=== PATIENT | male | born 1980 | race Caucasian/White ===

== ENCOUNTER 2016-11-25 02:02 | Emergency (ER) | payer OTHER ==
[~2016-11-25] VITALS: Ht 177.8 cm; Wt 77.3 kg
[2016-11-25 03:16] VITALS: BP 121/56; PULSE 59; RESP 18; O2SAT 99
--- NOTE | 2016-11-25 03:34 | ED.REPORT ---
HPI-Chest Pain Under 40 Date of Service Nov 25, 2016 ED Provider: Osmany Faustin MD Pt is a 36 year old male with a hx of COPD and asthma presenting to the ED complaining of chest pain radiating down his left arm onset just prior to arrival. He reports that he was at work and he kneeled down and "fell over", losing consciousness. The chest pain and sharp pain up and down the arm began shortly after. He states that he has these syncopal episodes frequently but he is not sure why. He has not had an echo. Denies any injury, SOB, wheezing, fever , chills, nausea or vomiting. Nursing Notes Stated Complaint: CHEST PAIN Chief Complaint: Chest Pain Nursing Notes Reviewed: Yes Allergies: Coded Allergies: Acetaminophen (Verified Allergy, Intermediate, unk, 11/24/11) Oxycodone HCl (Verified Allergy, Intermediate, unk, 11/24/11) Uncoded Allergies: DARVOCET (Allergy, Intermediate, unk, 11/24/11) General Time Seen by MD: 03:30 Chief Complaint Chest pain Hx Obtained From: Patient Arrived By: Walk-in Sudden in Onset?: Yes Onset Occurred: Just prior to arrival Symptom Duration: Since onset Location: : Chest left Quality: Painful Severity: Current: Mild Severity: Maximum: Moderate Recent Healthcare: No recent doctor visit, No recent hospitalization Similar Sx Previous: Yes Past Medical History Past Medical History Reports: Asthma, COPD Past Surgical History open heart surgery at the age of 11 to patch a hole in the heart Social History Alcohol Use: Denies alcohol use Ambulatory Status Independent Review of Systems Constitutional: Denies: Chills, Fever Respiratory: Denies: Shortness of breath, Wheezing Cardiovascular: Reports: Chest pain GI: Denies: Nausea, Vomiting Musculoskeletal: Reports: Extremity pain Neurologic: Reports: Change LOC Complete sys rev & neg: except as marked. Physical Exam Initial Vital Signs Vital Signs (First) Date Time Temp Pulse Resp B/P Pulse Ox O2 Delivery O2 Flow Rate FiO2 11/25/16 03:16 37.1 59 18 121/56 99 Room Air Initial VS: Reviewed, Vital signs normal Head / Eyes: Atraumatic, Normocephalic, PERRL ENT: Mucous membranes moist, Conjunctiva normal, No scleral icterus Neck: Supple, Non-tender, Full range of motion Abdomen / GI: Soft, Non-tender, No guarding, No rebound, No distention Extremities: Vascular intact, Neuro intact, No swelling, No tenderness Skin: Warm, Dry, No cyanosis Neurologic: Alert, Oriented, Nonfocal Psychiatric: Mood/affect normal, Behavior normal, Normal thought content General/Constitutional: Awake, Alert, No acute distress, Well appearing Respiratory / Chest: Breath sounds NL, Breath sounds = bilat, No respiratory distress, No rales, No rhonchi, No wheezing, No chest tenderness Cardiovascular: Heart rate NL, Regular rhythm, Heart sounds NL, No murmurs, Peripheral circulation NL, Pulses = bilaterally, No gross BP differential Interpretation & Diagnostics Lab Results Interpretation Result Diagram: 11/25/16 0215 11/25/16 0215 Test 11/25/16 02:15 White Blood Count 11.6th/mm3 (3.8-10.1) Red Blood Count 4.54mil/mm3 (4.40-5.80) Hemoglobin 14.5g/dL (13.8-17.2) Hematocrit 40.1% (41.0-50.0) Mean Corpuscular Volume 88.3fL (81-100) Mean Corpuscular Hemoglobin 31.9pg (27.0-35.0) Mean Corpuscular Hemoglobin Concent 36.2% (32.0-37.0) Red Cell Distribution Width 13.1% (12.3-15.4) Platelet Count 265bil/L (150-400) Neutrophils (%) (Auto) 66.6% (40-74) Lymphocytes (%) (Auto) 25.5% (14-46) Monocytes (%) (Auto) 6.9% (4-12) Eosinophils (%) (Auto) 0.7% (0-5) Basophils (%) (Auto) 0.2% (0-3) Hold Purple Top Tube Received (Received) Hold Blue Top Tube Received (Received) Hold Urine Received (Received) Sodium Level 139mEq/L (134-144) Potassium Level 3.7mEq/L (3.5-5.2) Chloride Level 104mEq/L (97-108) Carbon Dioxide Level 17mmol/L (18-29) Blood Urea Nitrogen 13mg/dL (6-20) Creatinine 0.97mg/dL (0.76-1.27) Estimat Glomerular Filtration Rate 93mL/min (>59) Glucose Level 94mg/dL (60-99) Calcium Level 9.1mg/dL (8.5-10.1) Magnesium Level 2.2mg/dL (1.6-2.6) Total Bilirubin 0.6mg/dL (0.0-1.2) Aspartate Amino Transf (AST/SGOT) 34U/L (0-50) Alanine Aminotransferase (ALT/SGPT) 22U/L (0-44) Alkaline Phosphatase 83U/L (25-150) Troponin T 0.010ug/L (0.0-0.011) Total Protein 6.8g/dL (6.4-8.4) Albumin 4.5g/dL (3.4-5.0) Hold [place] Top Tube Received (Received) Lab values outside NL range: no clinical significance. Lab Results Interpretation: Mildly decreased CO2 is not explained. ECG Interpretation ECG Interpretation: Borderline prolonged DC interval. Incomplete RBBB. Abnormal T, consider ischemia, anterolateral leads. Time: 02:11 Interpreted by: ED physician Normal ECG Interpretation: Normal sinus rhythm Abnormal Rate: 50 (57) ECG Interpretation: Sinus bradycardia. Borderline prolonged DC interval. Incomplete RBBB. Abnormal T, consider ischemia, anterolateral leads. Time: 04:03 Abnormal Rate: 40 (44) X-Ray Chest Interpretation Chest Xray Interpretation: Normal chest x ray. View: Portable, 1 view Interpretation / Wet Read by: Wet read ED physician Re-Eval/Medical Decision Med Decision/Clinical Course 36-year-old male who is a poor historian. He had an ASD or VSD which was repaired and has a child. He has had multiple episodes over time of syncope and presyncope. These are never been fully evaluated. Tonight his ER workup for cardiac disease is negative including no evidence of arrhythmia on monitoring. It is recommended that he avoid strenuous activity and follow up with cardiology to arrange echocardiogram and cardiac event monitoring. He will return to the rinse or if he has recurrence. Re-Evaluation/Progress : Time of Eval: 05:33 Patient Status: Condition improved Re-Evaluation/Progress Note: Discussed plan for discharge. Pt understands and agrees with plan. Counseled Regarding: Diagnosis, Lab results, Need for follow-up, When/why to return to ED Discharge & Departure Primary Impression: Chest pain with low risk for cardiac etiology Additional Impression: Syncope Syncope type: unspecified Qualified Code: R55 - Syncope and collapse Disposition: Home Discharge Condition All VS Reviewed: Yes Condition: Improved Patient Instructions: Chest Pain (ED), Syncope (ED) Additional Instructions: The EKG and labs today looked okay. You need further evaluation of the heart to include an echocardiogram and possibly a heart monitor. Contact cardiology for an appointment. Return here if you have further passing out. Referrals: Monique Flores (PCP) Lynn Ochoa MD Attestation Portions of this note were transcribed by Saritha Villar. I, Dr. Faustin personally performed the history, physical exam and medical decision-making; I reviewed and confirmed the accuracy of the information in the transcribed note. Signed by: Eli Mcdonnell, 11/25/2016. copies to: Monique Flores; Lynn Ochoa MD, Howard L MD Nov 25, 2016 03:34 SARITHA VILLAR Nov 25, 2016 03:57
[2016-11-25 03:59] LABS: BASOPHILS % (AUTO) 0.2 % (0-3); EOSINOPHILS % (AUTO) 0.7 % (0-5); MONOCYTES % (AUTO) 6.9 % (4-12); Mean Corpuscular Hemoglobin 31.9 pg (27.0-35.0); Mean Corpuscular Volume 88.3 fL (81-100); NEUTROPHILS % (AUTO) 66.6 % (40-74); Platelet Count 265 bil/L (150-400)
[2016-11-25 04:06] LABS: TROPONIN T 0.01 ug/L (0.0-0.011)
[2016-11-25 04:17] LABS: Magnesium 2.2 mg/dL (1.6-2.6)
[2016-11-25 05:42] VITALS: BP 128/64; PULSE 48; RESP 14; O2SAT 98
--- NOTE | 2016-11-25 07:57 | DRSVH ---
PROCEDURE: X-RAY CHEST ONE VIEW, PORTABLE ([id number]) INDICATIONS: CHEST PAIN TECHNIQUE: One view of the chest was acquired. COMPARISON: 02/24/2008 FINDINGS: Surgical changes and devices: Surgical plate and fixation screws overlie the right clavicle. Lungs and pleura: No pleural effusions or pneumothorax. Lungs are clear. Mediastinum: Mediastinal contours appear normal. Heart size is normal. Bones and chest wall: No suspicious bony lesions. Overlying soft tissues appear unremarkable. IMPRESSION: No acute cardiopulmonary abnormality. Dictated by: Farhad Garcia M.D. on 11/25/2016 at 7:54 Approved by: Farhad Garcia M.D. on 11/25/2016 at 7:55
== END 2016-11-25 05:48 | disposition home or self-care (01) ==
LOC: SED 02:02
DX: R07.89 Other chest pain (principal); R55 Syncope and collapse; J44.9 Chronic obstructive pulmonary disease, unspecified; Z88.5 Allergy status to narcotic agent; Z88.8 Allergy status to other drugs, medicaments and biological substances